=== PATIENT | female | born 1950 | race Caucasian/White ===

== ENCOUNTER 2017-07-20 17:41 | Inpatient (IN) | payer MEDICARE, OTHER ==
[~2017-07-20] VITALS: Ht 149.9 cm; Wt 83.5 kg
[2017-07-20] MEDS ORDERED: INSULIN REGULAR 100 UNITS/ML, 3ML VIAL ONE (18:03)
[2017-07-20 18:21] LABS: PH, VENOUS 7.365 pH (7.320-7.420)
[2017-07-20 18:26] LABS: BASOPHILS # (AUTO) 0.05 x10^3/uL (0-0.1); BASOPHILS % (AUTO) 1 % (0-1); EOSINOPHILS # (AUTO) 0.06 x10^3/uL (0-0.4); EOSINOPHILS % (AUTO) 1 % (1-7); LYMPHOCYTES % (AUTO) 24 % (22-44); MD NO; MEAN CORPUSCULAR HEMOGLOBIN 28.6 pg (27.0-34.8); MEAN CORPUSCULAR HGB CONC 33.2 g/dL (32.4-35.8); MEAN CORPUSCULAR VOLUME 86.2 fL (80-100); MEAN PLATELET VOLUME 9.4 fL (7.4-10.4); MONOCYTES # (AUTO) 0.51 x10^3/uL (0.2-0.8); MONOCYTES % (AUTO) 5 % (2-9); NEUTROPHILS # (AUTO) 7.08 x10^3/uL (1.8-6.8); NEUTROPHILS % (AUTO) 70 % (42-75); PLATELET COUNT 347 x10^3/uL (130-400); RED CELL DISTRIBUTION WIDTH 13.8 % (9.6-15.2)
[2017-07-20] MEDS ORDERED: SODIUM CHLORIDE 0.9% 1,000ML IVBOLUS ONE (18:30)
[2017-07-20] MEDS ORDERED: INSULIN REGULAR 100 UNITS/ML, 3ML VIAL IVPush ONE (18:30)
[2017-07-20 18:33] LABS: ACETONE, SERUM Negative (Negative)
[2017-07-20 18:35] LABS: MICROSCOPIC AUTO
[2017-07-20 18:36] LABS: CULTURE INDICATED? YES
[2017-07-20 19:00] LABS: ALANINE AMINOTRANSFERASE 22 U/L (12-78); ALBUMIN 3.8 g/dL (3.4-5.0); CALCIUM 8.4 mg/dL (8.5-10.1); CHLORIDE 103 mmol/L (98-107)
[2017-07-20 19:03] LABS: ALKALINE PHOSPHATASE 88 U/L (45-117); ANION GAP 9 mmol/L (5-15); BILIRUBIN,TOTAL 0.3 mg/dL (0.2-1.0); TOTAL PROTEIN 8.5 g/dL (6.4-8.2)
[2017-07-20] MEDS ORDERED: CEFDINIR 300 MG CAPSULE PO ONE (19:46)
[2017-07-20] MEDS ORDERED: INSU100I13 INJ (19:51)
[2017-07-20] MEDS ORDERED: METF500T4 PO (19:51)
[2017-07-20] MEDS ORDERED: LEVO100T5 PO (19:51)
[2017-07-20] MEDS ORDERED: ASPI-496 PO (19:51)
[2017-07-20] MEDS ORDERED: INSU100V8 SQ (19:51)
[2017-07-20] MEDS ORDERED: LOVA20TA2 PO (19:51)
[2017-07-20] MEDS ORDERED: METO50TA82 PO (19:51)
[2017-07-20] MEDS ORDERED: CEFDINIR 300 MG CAPSULE ONE (19:56)
[2017-07-20] MEDS ORDERED: CEFTRIAXONE PMX 1GM/50ML 50 ML IV SCH (21:00)
[2017-07-20] MEDS ORDERED: METOPROLOL TARTRATE 50 MG TABLET PO SCH (21:00)
[2017-07-20] MEDS ORDERED: BISACODYL 10 MG SUPP PR PRN (21:00)
[2017-07-20] MEDS ORDERED: LOVASTATIN 40 MG TABLET PO SCH (21:00)
[2017-07-20] MEDS: metFORMIN 500 MG TABLET PO SCH (21:00)
[2017-07-20] MEDS ORDERED: POLYETHYLENE GLYCOL 17 GM PACKET PO PRN (21:00)
[2017-07-20] MEDS ORDERED: ONDANSETRON 2MG/ML, 2ML IVPush PRN (21:00)
[2017-07-20] MEDS ORDERED: ACETAMINOPHEN 325 MG TABLET PO PRN (21:00)
[2017-07-20 21:38] LABS: HEMOGLOBIN A1C 8.9 % (4.2-6.3)
[2017-07-20] MEDS: SODIUM CHLORIDE FLUSH 10ML SYR IVF SCH (22:17)
[2017-07-20] MEDS: INSULIN LISPRO 100 UNITS/ML, PEN SQ-INSULIN SCH (22:28)
[2017-07-20] MEDS ORDERED: VIT1CAPS11 PO (22:53)
[2017-07-20 23:01] VITALS: BP 109/72
[2017-07-21 03:52] VITALS: BP 123/76
[2017-07-21] MEDS ORDERED: LEVOTHYROXINE 100 MCG TABLET PO SCH (06:00)
[2017-07-21 06:53] LABS: ALANINE AMINOTRANSFERASE 16 U/L (12-78); ANION GAP 8 mmol/L (5-15); CALCIUM 7.8 mg/dL (8.5-10.1); CHLORIDE 110 mmol/L (98-107); CREATININE 0.72 mg/dL (0.55-1.02)
[2017-07-21 06:55] LABS: ALKALINE PHOSPHATASE 68 U/L (45-117); BILIRUBIN,TOTAL 0.5 mg/dL (0.2-1.0); TOTAL PROTEIN 6.8 g/dL (6.4-8.2)
[2017-07-21 08:32] LABS: BASOPHILS # (AUTO) 0.03 x10^3/uL (0-0.1); BASOPHILS % (AUTO) 0 % (0-1); EOSINOPHILS # (AUTO) 0.11 x10^3/uL (0-0.4); EOSINOPHILS % (AUTO) 1 % (1-7); LYMPHOCYTES # (AUTO) 2.94 x10^3/uL (1-3.4); LYMPHOCYTES % (AUTO) 33 % (22-44); MD NO; MEAN CORPUSCULAR HEMOGLOBIN 28.5 pg (27.0-34.8); MEAN CORPUSCULAR HGB CONC 32.9 g/dL (32.4-35.8); MEAN CORPUSCULAR VOLUME 86.6 fL (80-100); MEAN PLATELET VOLUME 9.2 fL (7.4-10.4); MONOCYTES # (AUTO) 0.71 x10^3/uL (0.2-0.8); MONOCYTES % (AUTO) 8 % (2-9); NEUTROPHILS # (AUTO) 5.03 x10^3/uL (1.8-6.8); NEUTROPHILS % (AUTO) 57 % (42-75); PLATELET COUNT 306 x10^3/uL (130-400); RED BLOOD COUNT 4.26 x10^6/uL (3.82-5.3); RED CELL DISTRIBUTION WIDTH 14.2 % (9.6-15.2)
[2017-07-21 08:34] LABS: HEMOGRAM NOTE RECHECKED
[2017-07-21] MEDS: INSULIN LISPRO 100 UNITS/ML, PEN SQ-INSULIN SCH ×2 (08:37→12:19)
[2017-07-21] MEDS: metFORMIN 500 MG TABLET PO SCH (08:37)
[2017-07-21] MEDS: SODIUM CHLORIDE FLUSH 10ML SYR IVF SCH (08:38)
[2017-07-21] MEDS ORDERED: LISINOPRIL 10 MG TABLET PO SCH (09:00)
[2017-07-21] MEDS ORDERED: INSULIN GLARGINE 100 UNITS/ML, PEN HOMEINJ SCH (09:00)
[2017-07-21] MEDS ORDERED: ASPIRIN 81 MG TABLET EC PO SCH (09:00)
[2017-07-21] MEDS ORDERED: SENNA/DOCUSATE TABLET PO SCH (09:00)
[2017-07-21] MEDS ORDERED: INSULIN GLARGINE 100 UNITS/ML, PEN SQ-INSULIN SCH (09:00)
[2017-07-21 09:37] VITALS: BP 112/72
[2017-07-21] MEDS ORDERED: INSU100I11 SQ-INSULIN (12:03)
[2017-07-21] MEDS ORDERED: CEFD300C37 PO (12:03)
[2017-07-21 14:30] VITALS: BP 118/78
== END 2017-07-21 17:02 | disposition home or self-care (01) | DRG 638 ==
LOC: ED 20:09 → EDIP 20:50 → 3NE 21:30 → DCLOUNGE 07-21 16:35
PROVIDERS: ADMIT Internal Medicine; ATTEND Internal Medicine
DX: E11.65 Type 2 diabetes mellitus with hyperglycemia (principal); N30.00 Acute cystitis without hematuria; E87.1 Hypo-osmolality and hyponatremia; I10 Essential (primary) hypertension; I16.0 Hypertensive urgency; E03.9 Hypothyroidism, unspecified; E78.5 Hyperlipidemia, unspecified; Z79.4 Long term (current) use of insulin; Z82.49 Family history of ischemic heart disease and other diseases of the circulatory system; Z84.1 Family history of disorders of kidney and ureter; Z83.3 Family history of diabetes mellitus; Z86.73 Personal history of transient ischemic attack (TIA), and cerebral infarction without residual deficits
CPT/HCPCS: 36415; 80053; 81001; 82010; 82803; 82962; 83036; 85025; 87040; 87077; 87086; 96361; 96374; J0696; J1815; J7030

== ENCOUNTER 2017-10-13 19:56 | Emergency (ER) | payer MEDICARE ==
[~2017-10-13] VITALS: Ht 149.9 cm; Wt 81.7 kg
[~2017-10-13 19:56] MED LIST: ASPI-496 PO; CEFD300C37 PO; INSU100I11 SQ-INSULIN; INSU100I13 INJ; INSU100V8 SQ; LEVO100T5 PO; LOVA20TA2 PO; METF500T5 PO; METO50TA82 PO; VIT1CAPS11 PO
[2017-10-13] MEDS ORDERED: METOPROLOL 1 MG/ML, 5ML IVPush ONE (20:30)
[2017-10-13] MEDS ORDERED: SODIUM CHLORIDE 0.9% 1,000ML IVBOLUS ONE (20:30)
[2017-10-13] MEDS ORDERED: SODIUM CHLORIDE FLUSH 10ML SYR IVF ONE (20:30)
[2017-10-13 20:38] LABS: BASOPHILS # (AUTO) 0.12 x10^3/uL (0-0.1); BASOPHILS % (AUTO) 1 % (0-1); EOSINOPHILS # (AUTO) 0.11 x10^3/uL (0-0.4); EOSINOPHILS % (AUTO) 1 % (1-7); LYMPHOCYTES # (AUTO) 2.83 x10^3/uL (1-3.4); LYMPHOCYTES % (AUTO) 24 % (22-44); MD NO; MEAN CORPUSCULAR HEMOGLOBIN 29.8 pg (27.0-34.8); MEAN CORPUSCULAR HGB CONC 33.5 g/dL (32.4-35.8); MEAN CORPUSCULAR VOLUME 88.8 fL (80-100); MEAN PLATELET VOLUME 8.8 fL (7.4-10.4); MONOCYTES # (AUTO) 0.57 x10^3/uL (0.2-0.8); MONOCYTES % (AUTO) 5 % (2-9); NEUTROPHILS # (AUTO) 8.32 x10^3/uL (1.8-6.8); NEUTROPHILS % (AUTO) 70 % (42-75); PLATELET COUNT 366 x10^3/uL (130-400); RED BLOOD COUNT 4.99 x10^6/uL (3.82-5.3); RED CELL DISTRIBUTION WIDTH 14.5 % (9.6-15.2)
[2017-10-13 20:48] LABS: ALANINE AMINOTRANSFERASE 15 U/L (12-78); ALBUMIN 4.2 g/dL (3.4-5.0); ANION GAP 12 mmol/L (5-15); CHLORIDE 103 mmol/L (98-107); CREATININE 1.11 mg/dL (0.55-1.02)
[2017-10-13 20:51] LABS: ALKALINE PHOSPHATASE 98 U/L (45-117); BILIRUBIN,TOTAL 0.3 mg/dL (0.2-1.0); TOTAL PROTEIN 9.1 g/dL (6.4-8.2)
[2017-10-13] MEDS ORDERED: METOPROLOL 1 MG/ML, 5ML ONE (21:01)
[2017-10-13 21:24] VITALS: BP 161/89
[2017-10-13 21:27] LABS: TROPONIN I < 0.015 ng/mL (0.000-0.045)
[2017-10-13 21:34] LABS: MICROSCOPIC AUTO
[2017-10-13 21:37] LABS: CULTURE INDICATED? YES
== END 2017-10-13 22:09 | disposition home or self-care (01) ==
LOC: ED 22:08
DX: I16.9 Hypertensive crisis, unspecified (principal); E11.9 Type 2 diabetes mellitus without complications; E07.9 Disorder of thyroid, unspecified
CPT/HCPCS: 36415; 71045; 80053; 81001; 84484; 85025; 87086; 93005; 96374; 99285; J7030

== ENCOUNTER 2017-10-14 08:27 | Observation (INO) | payer MEDICARE ==
[~2017-10-14] VITALS: Ht 149.9 cm; Wt 76.2 kg
[2017-10-14] MEDS ORDERED: SODIUM CHLORIDE 0.9% 1,000 ML IV ONE (09:15)
[2017-10-14] MEDS ORDERED: SODIUM CHLORIDE FLUSH 10ML SYR IVF ONE (09:30)
[2017-10-14 09:51] LABS: BASOPHILS # (AUTO) 0.04 x10^3/uL (0-0.1); BASOPHILS % (AUTO) 0 % (0-1); EOSINOPHILS # (AUTO) 0.11 x10^3/uL (0-0.4); EOSINOPHILS % (AUTO) 1 % (1-7); LYMPHOCYTES # (AUTO) 1.91 x10^3/uL (1-3.4); LYMPHOCYTES % (AUTO) 21 % (22-44); MD NO; MEAN CORPUSCULAR HGB CONC 33.9 g/dL (32.4-35.8); MEAN CORPUSCULAR VOLUME 88.5 fL (80-100); MEAN PLATELET VOLUME 8.8 fL (7.4-10.4); MONOCYTES # (AUTO) 0.56 x10^3/uL (0.2-0.8); MONOCYTES % (AUTO) 6 % (2-9); NEUTROPHILS # (AUTO) 6.38 x10^3/uL (1.8-6.8); NEUTROPHILS % (AUTO) 71 % (42-75); PLATELET COUNT 347 x10^3/uL (130-400); RED BLOOD COUNT 4.61 x10^6/uL (3.82-5.3); RED CELL DISTRIBUTION WIDTH 14.3 % (9.6-15.2)
[2017-10-14 09:55] LABS: ALANINE AMINOTRANSFERASE 16 U/L (12-78); ALBUMIN 3.6 g/dL (3.4-5.0); ANION GAP 14 mmol/L (5-15); CALCIUM 8.5 mg/dL (8.5-10.1); CHLORIDE 105 mmol/L (98-107)
[2017-10-14 09:59] LABS: ALKALINE PHOSPHATASE 91 U/L (45-117); BILIRUBIN,TOTAL 0.5 mg/dL (0.2-1.0); TOTAL PROTEIN 8.5 g/dL (6.4-8.2)
[2017-10-14] MEDS ORDERED: OMNIPAQUE 350 MG/ML, 100ML BOTTLE ONE (10:00)
[2017-10-14 10:16] LABS: TROPONIN I < 0.015 ng/mL (0.000-0.045)
[2017-10-14] MEDS ORDERED: ACETAMINOPHEN 325 MG TABLET ONE ×2 (10:16→15:10)
[2017-10-14] MEDS ORDERED: ACETAMINOPHEN 325 MG TABLET PO ONE (10:30)
[2017-10-14] MEDS ORDERED: SODIUM CHLORIDE FLUSH 10ML SYR IVF PRN (11:30)
[2017-10-14] MEDS ORDERED: LABETALOL 5MG/ML, 20ML IVPush PRN (12:30)
[2017-10-14] MEDS ORDERED: ONDANSETRON 2MG/ML, 2ML IVPush PRN (12:30)
[2017-10-14 13:26] LABS: HEMOGLOBIN A1C 8.7 % (4.2-6.3)
[2017-10-14 13:58] VITALS: BP 167/97
[2017-10-14] MEDS ORDERED: LISINOPRIL 5 MG TABLET PO SCH (14:00)
[2017-10-14] MEDS: ACETAMINOPHEN 325 MG TABLET PO PRN (15:13)
[2017-10-14] MEDS: ENOXAPARIN 40 MG/0.4 ML SQ SCH ×2 (15:13→15:30)
[2017-10-14] MEDS: INSULIN LISPRO 100 UNITS/ML, PEN SQ-INSULIN SCH ×2 (16:00→21:00)
[2017-10-14] MEDS ORDERED: INSULIN GLARGINE 100 UNITS/ML, PEN SQ-INSULIN SCH ×2 (21:00)
[2017-10-14] MEDS: VIT C PO SCH (21:00)
[2017-10-14] MEDS: ZINC PO SCH (21:00)
[2017-10-14] MEDS ORDERED: METOPROLOL TARTRATE 50 MG TABLET PO SCH (21:00)
[2017-10-14] MEDS: VIT E PO SCH (21:00)
[2017-10-14] MEDS: COPPER PO SCH (21:00)
[2017-10-14] MEDS: VIT A PO SCH (21:00)
[2017-10-14] MEDS ORDERED: LOVASTATIN 40 MG TABLET PO SCH (21:00)
[2017-10-14 21:16] VITALS: BP 147/87
[2017-10-15 00:47] VITALS: BP 115/75
[2017-10-15 05:05] LABS: HCT (SEDRATE) 40.4 % (34.6-47.8)
[2017-10-15] MEDS ORDERED: LEVOTHYROXINE 100 MCG TABLET PO SCH (06:00)
[2017-10-15 07:25] LABS: TROPONIN I < 0.015 ng/mL (0.000-0.045)
[2017-10-15 08:32] VITALS: BP 127/82
[2017-10-15] MEDS: VIT C PO SCH (09:00)
[2017-10-15] MEDS ORDERED: ASPIRIN 81 MG TABLET EC PO SCH (09:00)
[2017-10-15] MEDS: ZINC PO SCH (09:00)
[2017-10-15] MEDS: VIT E PO SCH (09:00)
[2017-10-15] MEDS: COPPER PO SCH (09:00)
[2017-10-15] MEDS: VIT A PO SCH (09:00)
[2017-10-15] MEDS: INSULIN LISPRO 100 UNITS/ML, PEN SQ-INSULIN SCH ×2 (09:06→11:00)
[2017-10-15] MEDS ORDERED: REGADENOSON 0.4 MG/5 ML SYRINGE ONE (09:57)
[2017-10-15] MEDS ORDERED: METOPROLOL SUCCINATE 100 MG TAB.ER.24H PO SCH (11:00)
[2017-10-15] MEDS ORDERED: METOPROLOL TARTRATE 50 MG TABLET PO SCH (12:00)
[2017-10-15 12:13] VITALS: BP 150/84
[2017-10-15] MEDS: ACETAMINOPHEN 325 MG TABLET PO PRN (12:53)
[2017-10-15] MEDS ORDERED: METO50TA82 PO (13:17)
[2017-10-15 20:31] VITALS: BP 110/71
[2017-10-15 20:33] VITALS: BP 102/70
[2017-10-15 20:36] VITALS: BP 102/68
== END 2017-10-15 10:10 | disposition home or self-care (01) ==
LOC: ED 11:00 → EDIP 11:01 → INTOOBSV 11:01 → ED 11:05 → SUATTDRO 11:36 → 5SO 13:12
PROVIDERS: ADMIT Internal Medicine; ATTEND Internal Medicine
DX: R00.2 Palpitations (principal); I47.1 Supraventricular tachycardia; E11.65 Type 2 diabetes mellitus with hyperglycemia; E03.9 Hypothyroidism, unspecified; E78.5 Hyperlipidemia, unspecified; I10 Essential (primary) hypertension; I25.10 Atherosclerotic heart disease of native coronary artery without angina pectoris; I48.91 Unspecified atrial fibrillation; M47.9 Spondylosis, unspecified; Z79.899 Other long term (current) drug therapy; Z82.49 Family history of ischemic heart disease and other diseases of the circulatory system; Z83.3 Family history of diabetes mellitus; Z95.5 Presence of coronary angioplasty implant and graft
CPT/HCPCS: 36415; 70491; 78452; 80053; 82962; 83036; 83880; 84443; 84484; 85025; 85651; 93005; 93017; 93306; 96360; 96361; 96372; 99285; A9502; C9898; G0378; J1650; J1815; J2785; J7030; Q9967